=== PATIENT | female | born 1985 | race African-American/Black ===

== ENCOUNTER 2017-06-02 16:23 | Emergency (ER) | payer MEDICAID ==
[~2017-06-02] VITALS: Ht 160 cm; Wt 65.0 kg
[~2017-06-02 16:23] MED LIST: ALBU25PO2
[2017-06-02 16:25] VITALS: BP 140/90
== END 2017-06-02 18:27 | disposition left against medical advice (07) ==
LOC: ER 16:29
DX: R10.9 Unspecified abdominal pain (principal); Z53.21 Procedure and treatment not carried out due to patient leaving prior to being seen by health care provider

== ENCOUNTER 2017-06-25 12:51 | Emergency (ER) | payer MEDICAID ==
[~2017-06-25] VITALS: Ht 160 cm; Wt 50.0 kg
[2017-06-25 16:15] VITALS: BP 128/84
[2017-06-25] MEDS ORDERED: ONDANSETRON HCL 4MG TABLET PO ONE (16:15)
== END 2017-06-25 19:46 | disposition home or self-care (01) ==
LOC: ER 13:00
DX: F23 Brief psychotic disorder (principal); F20.9 Schizophrenia, unspecified; I10 Essential (primary) hypertension; R11.0 Nausea; E11.9 Type 2 diabetes mellitus without complications; J45.909 Unspecified asthma, uncomplicated
CPT/HCPCS: 99284; Q0162